=== PATIENT | female | born 1980 | race Caucasian/White ===

== ENCOUNTER 2023-09-03 09:38 | Outpatient (CLI) | payer OTHER, SELFPAY | END 2023-09-03 09:39 | disposition home or self-care (01) | LOC: NFLDREF 09-05 06:42 | PROVIDERS: Visit Provider Family Medicine | DX: R35.0 Frequency of micturition (principal) | CPT/HCPCS: 81015; 87086; 87186 ==

== ENCOUNTER 2024-06-09 13:34 | Outpatient (REF) | payer OTHER, SELFPAY ==
[2024-06-13 15:08] LABS: Estradiol by TMS 87.7 pg/mL
== END 2024-06-09 13:35 | disposition home or self-care (01) ==
LOC: NPINS 13:34
PROVIDERS: Family Medicine
DX: E28.319 Asymptomatic premature menopause (principal)
CPT/HCPCS: 82670

== ENCOUNTER 2024-07-13 08:49 | Outpatient (CLI) | payer OTHER, SELFPAY | END 2024-07-13 08:50 | disposition home or self-care (01) | LOC: NFLDREF 07-15 11:02 | PROVIDERS: Visit Provider Family Medicine | DX: R39.9 Unspecified symptoms and signs involving the genitourinary system (principal) | CPT/HCPCS: 87086; 87186 ==

== ENCOUNTER 2024-09-27 19:06 | Outpatient (CLI) | payer OTHER, SELFPAY | END 2024-09-27 19:07 | disposition home or self-care (01) | LOC: NFLDREF 09-28 02:54 | PROVIDERS: Visit Provider Nurse Practitioner Family | DX: N30.00 Acute cystitis without hematuria (principal); B96.20 Unspecified Escherichia coli [E. coli] as the cause of diseases classified elsewhere | CPT/HCPCS: 87086; 87186 ==

== ENCOUNTER 2024-10-05 11:46 | Outpatient (CLI) | payer OTHER, SELFPAY | END 2024-10-05 11:47 | disposition home or self-care (01) | LOC: NFLDREF 10-13 06:48 | PROVIDERS: Visit Provider Family Medicine | DX: N39.0 Urinary tract infection, site not specified (principal) | CPT/HCPCS: 87086; 87186 ==